=== PATIENT | female | born 1995 | race Caucasian/White ===

== ENCOUNTER 2017-03-13 20:35 | Emergency (ER) | payer OTHER ==
[2017-03-13] MEDS ORDERED: Aspirin Low Dose CHEW TAB* 81 MG PO ONE (22:34)
[2017-03-13] MEDS ORDERED: NS 0.9% 1000 ML* 1,000 ML IV ONE (22:34)
[2017-03-13] MEDS ORDERED: methylPREDNISolone SOD SUCC* 125 MG 2 ML VIAL IV ONE (23:14)
[2017-03-13] MEDS ORDERED: diPHENhydraMINE IV* 50 MG/ML 1 ml VIAL (BENADRYL) IV ONE (23:14)
[2017-03-13 23:18] LABS: Hematocrit 41 % (35-47); Hemoglobin 13.6 g/dl (12.0-16.0); Mean Corpuscular HGB Conc 34 g/dl (31-36); Mean Corpuscular Hemoglobin 30 pg (27-31); Mean Corpuscular Volume 89 fL (80-97); Mean Platelet Volume 9 um3 (7.4-10.4); Red Blood Count 4.55 10^6/ul (4.0-5.4); Red Cell Distribution Width 13 % (10.5-15); White Blood Count 9.4 10^3/ul (3.5-10.8)
[2017-03-13 23:35] LABS: ALT 17 U/L (7-52); AST 22 U/L (13-39); Albumin 4.3 g/dL (3.2-5.2); Alkaline Phosphatase 46 U/L (34-104); Anion Gap 8 mmol/L (2-11); BUN/Creatinine Ratio 13.8 (8-20); Blood Urea Nitrogen 9 mg/dL (6-24); CO2 Carbon Dioxide 24 mmol/L (22-32); Calcium 9.8 mg/dL (8.6-10.3); Chloride 104 mmol/L (101-111); EGFR Non-African American 117.4 (>60); Globulin 3.2 g/dL (2-4); Glucose 88 mg/dL (70-100); Potassium 3.7 mmol/L (3.5-5.0); Sodium 136 mmol/L (133-145); Total Protein 7.5 g/dL (6.4-8.9)
[2017-03-14] MEDS ORDERED: Iohexol 350* (CONTRAST) 500 ML MDV IV ONE (01:00)
[2017-03-14 03:00] VITALS: BP 105/58
--- NOTE | 2017-03-14 08:07 | RAD ---
INDICATION: Shortness of breath COMPARISON: None TECHNIQUE: Axial source images were acquired following the administration of 80 mL Omnipaque [address] angiographic technique. Coronal and sagittal reconstructed images were constructed and reviewed. FINDINGS: There there are no filling defects in the pulmonary arteries to indicate acute pulmonary embolic disease. There are no focal infiltrates or effusions. There are no pulmonary parenchymal masses. The heart is normal in size. There is no evidence of pericardial effusion. There is no evidence of aortic aneurysm or dissection. There is no mediastinal, hilar, or axillary lymphadenopathy. The visualized osseous structures appear normal. Limited views of the upper abdomen show no abnormalities. IMPRESSION: Normal CT of the chest without evidence of pulmonary embolism.
--- NOTE | 2017-03-14 21:21 | ED ---
Wilmar Ochoa Alok, scribed for David Grider on 03/13/17 at 2240 . HPI Chest Pain - HPI Summary HPI Summary: 21 y/o female presents to the ED with left sided CP for the past few hours. Pt also notes dypnea with deep breaths and SOB on exertion. The pt has a cough due to seasonal allergies. Pt denies fever. PMHx includes medicated asthma. Pt also takes BCP. Pt denies tobacco/ETOH/drug use. - History of Current Complaint Chief Complaint: EDChestPainROMI Time Seen by Provider: 03/13/17 22:28 Hx Obtained From: Patient Onset/Duration: Started Hours Ago, Atraumatic, Still Present Timing: Constant Initial Severity: Moderate Current Severity: Moderate Pain Intensity: 6 Pain Scale Used: 0-10 Numeric Chest Pain Location: Left Anterior Aggravating Factor(s): Exertion, Deep Breaths, Other: - seasonal allergies Associated Signs and Symptoms: Positive: Chest Pain, Shortness of Breath - on exertion, Other: - dypnea with deep breaths. Negative: Fever - Allergy/Home Medications Allergies/Adverse Reactions: Allergies Allergy/AdvReac Type Severity Reaction Status Date / Time Shellfish Allergy Allergy Unknown Unknown Verified 03/13/17 23:20 Reaction Details PMH/Surg Hx/FS Hx/Imm Hx Respiratory History: Reports: Hx Asthma Infectious Disease History: No Infectious Disease History: Denies: Traveled Outside the [place] in Last 30 Days - Family History Known Family History: Negative: Hypertension - Social History Occupation: Student Lives: With Family Alcohol Use: None Substance Use Type: Reports: None Smoking Status (MU): Never Smoked Tobacco Review of Systems Negative: Fever Positive: Chest Pain Positive: Shortness Of Breath, Other - dypnea All Other Systems Reviewed And Are Negative: Yes Physical Exam Triage Information Reviewed: Yes Vital Signs On Initial Exam: Initial Vitals Temp Pulse Resp BP Pulse Ox 98.4 F 89 18 154/74 100 03/13/17 20:41 03/13/17 20:41 03/13/17 20:41 03/13/17 20:41 03/13/17 20:41 Vital Signs Reviewed: Yes Appearance: Positive: Well-Appearing, No Pain Distress Skin: Positive: Warm, Skin Color Reflects Adequate Perfusion, Dry Head/Face: Positive: Normal Head/Face Inspection Eyes: Positive: EOMI, ESTEFANIA ENT: Positive: Normal ENT inspection Neck: Positive: Supple, Nontender Respiratory/Lung Sounds: Positive: Clear to Auscultation, Breath Sounds Present Cardiovascular: Positive: RRR, Pulses are Symmetrical in both Upper and Lower Extremities Abdomen Description: Positive: Nontender, Soft Bowel Sounds: Positive: Present Musculoskeletal: Positive: Other - Mild left sided chest tenderness Neurological: Positive: Normal, Sensory/Motor Intact, Alert, Oriented to Person Place, Time, CN Intact II-III - Jeanne Coma Scale Coma Scale Total: 15 Diagnostics - Vital Signs Vital Signs Temp Pulse Resp BP Pulse Ox 03/13/17 20:41 98.4 F 89 18 154/74 100 - Laboratory Result Diagrams: 03/13/17 23:05 03/13/17 23:05 Lab Statement: Any lab studies that have been ordered have been reviewed, and results considered in the medical decision making process. - CT Chest/Thorax CTA CT Interpretation: Positive (See Comments) - IMPRESSION: NO EVIDENCE OF PATHOLOGY. CT Interpretation Completed By: Radiologist - EKG 2045 Cardiac Rate: NL - 82 bpm EKG Rhythm: Sinus Rhythm EKG Interpretation: No acute changes. Re-Evaluation - Re-Evaluation First Eval Re-Evaluation Time: 02:21 Change: Improved Comment: No pain with movement or respiration Chest Pain Course/Dx - Course Course Of Treatment: Pt came with CP. Did lab and CT. Currently no pain with movement or respiration. Will discharge with motrin and recommendation to FU with PCP in three days. - Diagnoses Provider Diagnoses: Musculoskeletal chest pain, Chest wall pain Discharge - Discharge Plan Condition: Stable Disposition: HOME Prescriptions: Ibuprofen TAB* [Motrin TAB* 600 MG] 600 mg PO Q8H PRN #20 tab PRN Reason: Pain Patient Education Materials: Chest Wall Pain (ED) [facility] - 3 Days Additional Instructions: Please follow up with your primary care provider in the next three days. The documentation as recorded by the Wilmar ulloa Alok accurately reflects the service I personally performed and the decisions made by Cheo franco Emmanuel.
== END 2017-03-14 02:30 | disposition home or self-care (01) ==
LOC: ED 20:35
DX: R07.89 Other chest pain (principal); R06.02 Shortness of breath
CPT/HCPCS: 36415; 71275; 80053; 83880; 84484; 84702; 85025; 85379; 85610; 85730; 93005; 96374; 96375; 99284; J1200; J2930; Q9967

== ENCOUNTER 2019-03-22 12:24 | Emergency (ER) | payer OTHER ==
[2019-03-22] MEDS ORDERED: Famotidine TAB* 20 MG PO ONE (12:33)
[2019-03-22] MEDS ORDERED: Dexamethasone TAB* 4 MG PO ONE (12:34)
[2019-03-22] MEDS ORDERED: diPHENhydraMINE PO* 25 MG PO ONE (12:34)
--- NOTE | 2019-03-22 12:44 | ED ---
Allergic Reaction/Systemic - HPI Summary HPI Summary: This patient is a 23 year old F presenting to [facility] with a chief complaint of tree nut allergic reaction since this afternoon 03/22/19. Patient accidentally drank a friend's almond milk coffee. Patient self-administered an EpiPen at 1210. Patient reports feeing jittery and anxious due to EpiPen administration. Patient has a known allergy to tree nuts, and in the past her throat has closed. Patient denies any CP, SOB, abdominal pain, rash, or difficulty swallowing. - History of Current Complaint Chief Complaint: EDAllergicReaction Time Seen by Provider: 03/22/19 12:28 Hx Obtained From: Patient Onset/Duration: Sudden Onset, Started minutes ago - around 1210 Timing: Lasting Minutes - around 1210 Severity Currently: None Pain Intensity: 0 Pain Scale Used: 0-10 Numeric Character: Pain - Negative Aggravating Factor(s): Nothing Alleviating Factor(s): Epinephrine Associated Signs And Symptoms: Positive: Other: - Jittery, Anxious. Negative: Abdominal Pain, Chest Pain, Difficulty Breathing - SOB, Rash, Throat Tightening - difficulty swallowing - Allergies/Home Medications Allergies/Adverse Reactions: Allergies Allergy/AdvReac Type Severity Reaction Status Date / Time shellfish derived Allergy Anaphylatic Verified 03/22/19 12:30 Shock tree nut Allergy Anaphylatic Verified 03/22/19 12:30 Shock PMH/Surg Hx/FS Hx/Imm Hx Endocrine/Hematology History: Denies: Hx Diabetes Cardiovascular History: Denies: Hx Hypertension Respiratory History: Reports: Hx Asthma History: Denies: Hx Dialysis, Hx Renal Disease Infectious Disease History: No Infectious Disease History: Denies: Traveled Outside the [place] in Last 30 Days - Family History Known Family History: Negative: Hypertension - Social History Alcohol Use: None Hx Substance Use: No Substance Use Type: Reports: None Hx Tobacco Use: No Smoking Status (MU): Never Smoked Tobacco Review of Systems Positive: Other - Jittery Positive: Other - Negative: Difficulty swallowing Negative: Chest Pain Negative: Shortness Of Breath Negative: Abdominal Pain Negative: Rash Positive: Anxious All Other Systems Reviewed And Are Negative: Yes Physical Exam - Summary Physical Exam Summary: Appearance: well appearing, no pain distress Skin: warm, dry, reflects adequate perfusion Head/face: normal Eyes: EOMI, ESTEFANIA ENT: mucous membranes moist Neck: supple, non-tender Respiratory: CTA, breath sounds present Cardiovascular: pulses symmetrical, mild tachycardia, normal rhythm Abdomen: non-tender, soft Bowel Sounds: present Musculoskeletal: normal, strength/ROM intact Neuro: normal, sensory motor intact, A&Ox3 Triage Information Reviewed: Yes Vital Signs On Initial Exam: Initial Vitals Temp Pulse Resp BP Pulse Ox 98.0 F 86 16 157/83 98 03/22/19 12:26 03/22/19 12:26 03/22/19 12:26 03/22/19 12:26 03/22/19 12:26 Vital Signs Reviewed: Yes Diagnostics - Vital Signs Vital Signs Temp Pulse Resp BP Pulse Ox 03/22/19 12:26 98.0 F 86 16 157/83 98 - Laboratory Lab Statement: Any lab studies that have been ordered have been reviewed, and results considered in the medical decision making process. Allergic Reaction Course/Dx - Course Course Of Treatment: Nurse's notes reviewed. Patient presents after giving herself an EpiPen following accidental ingestion of a small amount of Alman milk. She has history of significant allergy without anaphylaxis to this. She demonstrated no symptoms throughout observation here. She was given H1, H2 andrea and a steroid. She was refilled and her EpiPen prescription will follow -[facility] as [facility]. - Diagnoses Differential Diagnosis/HQI/PQRI: Positive: Anaphylaxis, Angioedema, Bronchospasm , Local Allergic Reaction Provider Diagnoses: [place] allergy Discharge - Sign-Out/Discharge Documenting (check all that apply): Patient Departure - Discharged Patient Received Moderate/Deep Sedation with Procedure: No - Discharge Plan Condition: Improved Disposition: HOME Prescriptions: EPINEPHrine [Epipen 2-Nithin] 0.3 mg IM ONCE PRN #1 unit PRN Reason: severe allergy symptoms Famotidine TAB* [Pepcid 20 MG TAB*] 40 mg PO BID PRN #30 tab PRN Reason: Allergy Symptoms Patient Education Materials: Peanut Allergy (ED) Referrals: [facility] [Z.BUSINESS, APPLICATION, OTHER] - Additional Instructions: Return with difficulty swallowing, difficulty breathing, allergy symptoms, worse or other concerns. Follow-up with [facility] as needed. - Billing Disposition and Condition Condition: IMPROVED Disposition: Home - Attestation Statements Document Initiated by Scribe: Yes Documenting Scribe: Pranav Ibrahim Provider For Whom Scribe is Documenting (Include Credential): Asher Polo MD Scribe Attestation: IPranav, scribed for Asher Polo MD on 03/22/19 at 1328. Scribe Documentation Reviewed: Yes Provider Attestation: The documentation as recorded by the scribePranav accurately reflects the service I personally performed and the decisions made by me, Asher Polo MD Status of Scribe Document: Viewed
[2019-03-22 13:48] VITALS: BP 113/70
== END 2019-03-22 13:48 | disposition home or self-care (01) ==
LOC: ED 12:24
DX: Z91.018 Allergy to other foods (principal)
CPT/HCPCS: 99282; A9270-GY; J8540